=== PATIENT | female | born 2000 | race Hispanic/Latino ===

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

== ENCOUNTER 2020-10-06 19:54 | Inpatient (IN) | payer MEDICAID, OTHER ==
[~2020-10-06] VITALS: Ht 162.6 cm; Wt 64.8 kg
[2020-10-06 21:03] LABS: BASOPHILS % (AUTO) 0.1 % (0.0-5.0); EOSINOPHILS % (AUTO) 0.2 % (0.0-8.0); HEMATOCRIT 38.3 % (36-48); LYMPHOCYTES % (AUTO) 8.8 % (21.0-51.0); MEAN CORPUSCULAR HEMOGLOBIN 24.5 pg (27.0-33.0); MEAN CORPUSCULAR HGB CONC 32.4 g/dL (32.0-36.0); MEAN CORPUSCULAR VOLUME 75.5 fL (80-100); PLATELET COUNT (AUTO) 13 K/uL (130-400); RED BLOOD CELL COUNT(AUTO) 5.07 MIL/uL (4.00-5.50); RED CELL DISTRIBUTION WIDTH 20.5 % (11.0-15.5)
[2020-10-06 21:11] VITALS: BP 109/56
[2020-10-06 21:16] LABS: CARBON DIOXIDE 29 mmol/L (21-32); CHLORIDE 100 mmol/L (101-111); GLOMERULAR FILTR. RATE CALC 75 mL/min (>60); GLUCOSE,RANDOM 97 mg/dL (70-105); POTASSIUM 3.8 mmol/L (3.5-5.1); SODIUM SERUM 138 mmol/L (136-145); UREA NITROGEN, BLOOD 11 mg/dL (7-18)
[2020-10-06 21:17] LABS: INR 0.92 (0.85-1.15); PROTHROMBIN TIME 10.1 SEC (9.6-11.6)
[2020-10-06 21:27] LABS: ALANINE AMINOTRANSFERASE 29 U/L (12-78); ASPARTATE AMINOTRANSFERASE 26 U/L (10-37); BILIRUBIN,TOTAL 0.6 mg/dL (0.2-1.0); CREATINE KINASE, TOTAL 37 U/L (21-232); MYOGLOBIN 16 ng/mL (10-92); TOTAL PROTEIN, SERUM 7.7 g/dL (6.0-8.3); TROPONIN I < 0.04 ng/mL (0.00-0.06)
[2020-10-06] MEDS ORDERED: ACETAMINOPHEN 325 MG TAB PO PRN ×2 (23:00)
[2020-10-06] MEDS ORDERED: ONDANSETRON 4MG INJ IV PRN (23:00)
[2020-10-06] MEDS ORDERED: NITROGLYCERIN 0.4 MG SL TAB SL PRN (23:00)
[2020-10-06] MEDS ORDERED: 0.9%NACL 1000ML 1,000 ML IV SCH (23:00)
[2020-10-06 23:12] LABS: BILIRUBIN,URINE Small (NEGATIVE); COLOR,URINE Dark Yellow (YELLOW); GLUCOSE, URINE (UA) Negative (NEGATIVE); KETONES,URINE 15 mg/dL (NEGATIVE); LEUKOCYTE ESTERASE ,URINE Trace (NEGATIVE); NITRATE,URINE Negative (NEGATIVE); OCCULT BLOOD,URINE Negative (NEGATIVE); PH,URINE 5.5 (5.0-8.0); PROTEIN,URINE POS 1+ mg/dL (NEGATIVE)
[2020-10-06 23:13] LABS: APPEARANCE,URINE CLEAR (CLEAR)
[2020-10-06 23:20] LABS: BACTERIA,URINE Few /HPF (None Seen); HYALINE CASTS, URINE 0-1 /LPF (0-1 /LPF); MUCUS,URINE Few LPF (None Seen); RBC,URINE 0-1 /HPF (0-1)
[2020-10-06] MEDS: 0.9%NACL 1000ML 1,000 ML IV SCH (23:31)
[2020-10-06 23:40] LABS: HEMATOCRIT 35.9 % (36-48); MEAN CORPUSCULAR HEMOGLOBIN 25.1 pg (27.0-33.0); MEAN CORPUSCULAR HGB CONC 32.9 g/dL (32.0-36.0); MEAN CORPUSCULAR VOLUME 76.2 fL (80-100); PLATELET COUNT (AUTO) 12 K/uL (130-400); RED BLOOD CELL COUNT(AUTO) 4.71 MIL/uL (4.00-5.50); RED CELL DISTRIBUTION WIDTH 20.2 % (11.0-15.5); WHITE BLOOD COUNT (AUTO) 21.4 K/uL (4.8-10.8)
[2020-10-07] VITALS (7 sets, daily range): BP systolic 80–102; BP diastolic 33–57
[2020-10-07] LABS: CREATINE KINASE, TOTAL 18 U/L (21-232); MYOGLOBIN 12 ng/mL (10-92); TROPONIN I < 0.04 ng/mL (0.00-0.06)
[2020-10-07 00:01] LABS: LYMPHOCYTES % (MANUAL) 17 % (22-44); MAN.DIFF COMMENT-IMPRESSION MANUAL DIFFERENTIAL; MONOCYTES % (MANUAL) 5 % (2-9); SEGMENTED NEUTROPHILS % 78 % (40-70)
[2020-10-07 00:02] LABS: PLATELET MORPHOLOGY COMMENT MARKED DECREASE
[2020-10-07] MEDS ORDERED: IOHEXOL-350 75 ML VIAL IV ONE ×2 (01:33→17:41)
[2020-10-07 02:03] LABS: PARTIAL THROMBOPLASTIN TIME 24.3 SEC (26.3-35.5)
[2020-10-07 06:32] LABS: NEUTROPHILS % (AUTO) 74.4 % (40.0-77.0); RED CELL DISTRIBUTION WIDTH 20.7 % (11.0-15.5)
[2020-10-07 06:59] LABS: BASOPHILS % (AUTO) 0.2 % (0.0-5.0); EOSINOPHILS % (AUTO) 0.1 % (0.0-8.0); HEMATOCRIT 32.1 % (36-48); LYMPHOCYTES % (AUTO) 16.5 % (21.0-51.0); MEAN CORPUSCULAR HEMOGLOBIN 24.9 pg (27.0-33.0); MEAN CORPUSCULAR HGB CONC 32.4 g/dL (32.0-36.0); MEAN CORPUSCULAR VOLUME 76.8 fL (80-100); MONOCYTES % (AUTO) 8.2 % (3.0-13.0); RED BLOOD CELL COUNT(AUTO) 4.18 MIL/uL (4.00-5.50); WHITE BLOOD COUNT (AUTO) 14.2 K/uL (4.8-10.8)
[2020-10-07 07:13] LABS: PLATELET COUNT (AUTO) 9 K/uL (130-400)
[2020-10-07 07:35] LABS: ALBUMIN 2.7 g/dL (3.5-5.0); BILIRUBIN,TOTAL 0.3 mg/dL (0.2-1.0); CREATININE 0.7 mg/dL (0.5-1.5); MAGNESIUM 2.1 mg/dL (1.80-2.40); POTASSIUM 3.7 mmol/L (3.5-5.1); TOTAL PROTEIN, SERUM 5.3 g/dL (6.0-8.3)
[2020-10-07 07:42] LABS: TROPONIN I 0.84 ng/mL (0.00-0.06)
[2020-10-07] MEDS: 0.9%NACL 1000ML 1,000 ML IV SCH ×2 (09:36→12:21)
[2020-10-07] MEDS: FAMOTIDINE 20MG TAB PO SCH ×2 (09:36→22:16)
[2020-10-07 17:03] LABS: % IRON SATURATION 14.8 % (22-44)
[2020-10-07 17:21] LABS: TROPONIN I 2.03 ng/mL (0.00-0.06)
[2020-10-07] MEDS ORDERED: DEXAMETHASONE SOD PHOSPHATE 4 MG/ML 1ML VIAL IVP SCH (18:00)
[2020-10-07] MEDS ORDERED: 0.9% NACL 250ML IVPB SCH (18:00)
[2020-10-07] MEDS ORDERED: CYANOCOBALAMIN (VITAMIN B-12) 1000 MCG/ML 1ML VIAL IM SCH (18:00)
[2020-10-07 18:10] LABS: AMPHET/METH SCREEN,URINE NEGATIVE (NEGATIVE); BARBITURATE SCREEN, URINE NEGATIVE (NEGATIVE); BENZODIAZEPINES SCREEN,URINE NEGATIVE (NEGATIVE); CANNABINOID SCREEN,URINE NEGATIVE (NEGATIVE); COCAINE SCREEN,URINE NEGATIVE (NEGATIVE); OPIATE SCREEN,URINE NEGATIVE (NEGATIVE); PHENCYCLIDINE SCREEN,URINE NEGATIVE (NEGATIVE)
[2020-10-07] MEDS: DEXAMETHASONE SOD PHOSPHATE 4 MG/ML 5ML VIAL IVP SCH (19:36)
[2020-10-07] MEDS: DOXYCYCLINE 100MG+NS 250ML IV SCH (22:16)
[2020-10-08] VITALS (11 sets, daily range): BP systolic 97–118; BP diastolic 50–76
[2020-10-08] MEDS: 0.9%NACL 1000ML 1,000 ML IV SCH ×2 (05:00→15:00)
[2020-10-08] MEDS ORDERED: IOHEXOL 350 MG/ML 100ML INFUS..BTL IV ONE (06:41)
[2020-10-08] MEDS: DEXAMETHASONE SOD PHOSPHATE 4 MG/ML 5ML VIAL IVP SCH (08:50)
[2020-10-08] MEDS: FOLIC ACID 1 MG TABLET PO SCH (08:50)
[2020-10-08] MEDS: DOXYCYCLINE 100MG+NS 250ML IV SCH ×2 (08:50→19:58)
[2020-10-08] MEDS: FAMOTIDINE 20MG TAB PO SCH (08:51)
[2020-10-09] VITALS (11 sets, daily range): BP systolic 98–113; BP diastolic 62–77
[2020-10-09 05:57] LABS: HEMATOCRIT 31.7 % (36-48); MEAN CORPUSCULAR HEMOGLOBIN 25.1 pg (27.0-33.0); MEAN CORPUSCULAR HGB CONC 32.8 g/dL (32.0-36.0); MEAN CORPUSCULAR VOLUME 76.4 fL (80-100); PLATELET COUNT (AUTO) 50 K/uL (130-400); RED BLOOD CELL COUNT(AUTO) 4.15 MIL/uL (4.00-5.50); RED CELL DISTRIBUTION WIDTH 21.7 % (11.0-15.5); WHITE BLOOD COUNT (AUTO) 10.5 K/uL (4.8-10.8)
[2020-10-09] MEDS: DOXYCYCLINE 100MG+NS 250ML IV SCH ×2 (06:00→17:39)
[2020-10-09 06:21] LABS: ALBUMIN 2.8 g/dL (3.5-5.0); BILIRUBIN,TOTAL 0.2 mg/dL (0.2-1.0); CREATININE 0.5 mg/dL (0.5-1.5); MAGNESIUM 2.2 mg/dL (1.80-2.40); POTASSIUM 3.7 mmol/L (3.5-5.1); TOTAL PROTEIN, SERUM 5.8 g/dL (6.0-8.3)
[2020-10-09 06:23] LABS: INR 1.05 (0.85-1.15); PROTHROMBIN TIME 11.4 SEC (9.6-11.6)
[2020-10-09 06:24] LABS: PARTIAL THROMBOPLASTIN TIME 24.5 SEC (26.3-35.5); TROPONIN I 0.77 ng/mL (0.00-0.06)
[2020-10-09 06:58] LABS: LYMPHOCYTES % (MANUAL) 6 % (22-44); MAN.DIFF COMMENT-IMPRESSION MANUAL DIFFERENTIAL; MONOCYTES % (MANUAL) 5 % (2-9); PLATELET MORPHOLOGY COMMENT DECREASED; SEGMENTED NEUTROPHILS % 89 % (40-70)
[2020-10-09] MEDS ORDERED: ATROPINE 1MG SYG IVP PRN (07:09)
[2020-10-09] MEDS: DEXAMETHASONE SOD PHOSPHATE 4 MG/ML 5ML VIAL IVP SCH (09:00)
[2020-10-09] MEDS: FOLIC ACID 1 MG TABLET PO SCH (10:59)
[2020-10-09] MEDS: 0.9%NACL 1000ML 1,000 ML IV SCH ×3 (11:04→19:58)
[2020-10-09] MEDS ORDERED: DEXAMETHASONE SOD PHOSPHATE 4 MG/ML 1ML VIAL ONE (11:04)
[2020-10-09 17:13] LABS: HEPATITIS A ANTIBODY IGM Negative (Negative); HEPATITIS B CORE IGM Negative (Negative); HEPATITIS Bs ANTIGEN SCREEN P Negative (Negative)
[2020-10-09] MEDS: DOXYCYCLINE HYCLATE 100 MG TABLET PO SCH ×2 (19:58→19:59)
[2020-10-10 03:54] VITALS: BP 107/65
[2020-10-10 07:08] VITALS: BP 104/65
[2020-10-10] MEDS: DEXAMETHASONE SOD PHOSPHATE 4 MG/ML 5ML VIAL IVP SCH (09:00)
[2020-10-10] MEDS ORDERED: DEXAMETHASONE SOD PHOSPHATE 4 MG/ML 1ML VIAL ONE (10:08)
[2020-10-10] MEDS: FOLIC ACID 1 MG TABLET PO SCH (10:44)
[2020-10-10] MEDS: 0.9%NACL 1000ML 1,000 ML IV SCH (10:44)
[2020-10-10] MEDS: DOXYCYCLINE HYCLATE 100 MG TABLET PO SCH (10:44)
[2020-10-10 11:24] VITALS: BP 108/68
[2020-10-10 11:45] LABS: BASOPHILS % (AUTO) 0.1 % (0.0-5.0); HEMATOCRIT 28.7 % (36-48); LYMPHOCYTES % (AUTO) 20.1 % (21.0-51.0); MEAN CORPUSCULAR HEMOGLOBIN 24.7 pg (27.0-33.0); MEAN CORPUSCULAR VOLUME 79.7 fL (80-100); MONOCYTES % (AUTO) 8.8 % (3.0-13.0); NEUTROPHILS % (AUTO) 70.8 % (40.0-77.0); PLATELET COUNT (AUTO) 61 K/uL (130-400); RED CELL DISTRIBUTION WIDTH 22.5 % (11.0-15.5); WHITE BLOOD COUNT (AUTO) 8.1 K/uL (4.8-10.8)
[2020-10-10 12:51] LABS: THYROID STIMULATING HORMONE 0.19 uIU/mL (0.36-3.74)
[2020-10-10] MEDS ORDERED: FERS325 PO (13:01)
[2020-10-10] MEDS ORDERED: PANT20TA18 PO (13:03)
[2020-10-10] MEDS ORDERED: DOXY100T2 PO (13:11)
== END 2020-10-10 16:18 | disposition home or self-care (01) | DRG 813 ==
LOC: EDH 19:54 → OBSVTOIN 19:55 → EDHIP 19:55 → INTOOBSV 19:55 → EDHIP 22:10 → UNDOADMIN 22:10 → 3AH 10-09 00:04 → EDHIP 10-09 03:12 → 3AH 10-09 05:16 → EDHIP 10-09 07:04 → 4CH 10-09 08:39
PROVIDERS: ADMIT Internal Medicine; ATTEND Internal Medicine
PROC: 30233R1 Transfusion of Nonautologous Platelets into Peripheral Vein, Percutaneous Approach (ICD-10-PCS; principal; 2020-10-08)
DX: D69.3 Immune thrombocytopenic purpura (principal); I21.A1 Myocardial infarction type 2; A75.9 Typhus fever, unspecified; I49.8 Other specified cardiac arrhythmias; E78.5 Hyperlipidemia, unspecified; D72.829 Elevated white blood cell count, unspecified; D69.59 Other secondary thrombocytopenia; R79.89 Other specified abnormal findings of blood chemistry; R53.81 Other malaise; D50.9 Iron deficiency anemia, unspecified; E66.01 Morbid (severe) obesity due to excess calories; M54.2 Cervicalgia; R19.7 Diarrhea, unspecified; G44.209 Tension-type headache, unspecified, not intractable; I10 Essential (primary) hypertension; Z20.822 Contact with and (suspected) exposure to COVID-19; Z98.84 Bariatric surgery status; Z90.49 Acquired absence of other specified parts of digestive tract; Z82.49 Family history of ischemic heart disease and other diseases of the circulatory system; Z68.24 Body mass index [BMI] 24.0-24.9, adult
CPT/HCPCS: 36415; 70450; 70496; 70498; 71045; 71275; 80053; 80061; 80074; 80305; 81001; 81025; 82550; 82607; 82728; 82746; 83010; 83540; 83550; 83615; 83690; 83735; 83874; 83880; 84439; 84443; 84484; 85025; 85378; 85384; 85610; 85651; 85730; 85732; 86038; 86147; 86215; 86235; 86431; 86701; 86757; 86850; 86880; 86900; 86901; 87390; 87635; 93005; 93306; 93356; 93970; G0378; J1100; J3420; J3490; J7030; P9034; Q9967